=== PATIENT | female | born 1935 | race Caucasian/White ===

== ENCOUNTER → 2017-04-01 | Outpatient (CLI) | payer MEDICARE ==
[~2017-04-01] MED LIST: ASPIRIN 81M81 MG/TA2 PO; BETAPACE 80MG80 MG PO; CALCIUM CITRAT950 MG PO; DYRENIUM 50MG C50 MG PO; GLUCOSAMIN 500 PO; MULTI VITAMINS1 TAB PO; OMEGA 31000 MG PO; PRILOSEC 20MG20 MG PO; PROBIOTICA100 Milli1 PO; SYNTHROID0.05 MG/TA PO
== END ==
LOC: MC.RAD 07:08
DX: Z12.31 Encounter for screening mammogram for malignant neoplasm of breast (principal)

== ENCOUNTER 2017-08-15 07:30 | Emergency (ER) | payer MEDICARE ==
[2005-12-23 22:40] VITALS: BP 183/89
[~2017-08-15] VITALS: Ht 165.1 cm; Wt 68.2 kg
[2017-08-15 07:34] VITALS: TEMP 98.3
[2017-08-15] MEDS ORDERED: NORVASC 10MG10 MG PO (07:55)
[2017-08-15] MEDS ORDERED: PHOS LO (08:05)
[2017-08-15] MEDS ORDERED: CRANBERRY500 M3 PO (08:06)
[2017-08-15] MEDS ORDERED: CORTEF 10MG TAB10 MG RC (08:08)
[2017-08-15] MEDS ORDERED: ELOCON0.1% TP (08:09)
[2017-08-15] MEDS ORDERED: DITROPAN 5MG TAB5 MG PO (08:10)
[2017-08-15] MEDS ORDERED: MICARDIS80 MG PO (08:12)
[2017-08-15 08:13] LABS: BASO # 0.1 (0.0-0.2); BASO % 1.4 % (0.0-2.0); EOS # 0.5 (0.0-0.7); EOS % 10.5 % (0-4.0); GRAN # 2.1 (1.4-6.5); GRAN % 48.7 % (42.2-75.2); LYMPH # 1.3 (1.2-3.4); LYMPH % 29.4 % (20.0-51.0); MEAN CELL VOLUME 96 fl (80.0-100.0); MEAN CORPUSCULAR HGB CONC 34 g/dl (33.0-37.0); MEAN PLATELET VOLUME 9.7 fl (7.4-10.4); MONO # 0.4 (0.1-0.6); MONO % 9.8 % (1.7-9.3); PLATELET COUNT 273 K/mm3 (130-400); RED BLOOD COUNT 3.65 M/mm3 (4.10-5.30); REDCELL DISTRIBUTION WIDTH-CV 11.9 % (11.5-14.5)
[2017-08-15 08:15] LABS: HEMATOCRIT 35.1 % (37.0-47.0); HEMOGLOBIN 11.8 g/dl (12.5-16.0); MEAN CORPUSCULAR HEMOGLOBIN 32 pg (27.0-31.0)
[2017-08-15 08:25] LABS: BILIRUBIN,TOTAL 0.5 mg/dL (0.0-1.0); CALCIUM 9.2 mg/dL (8.4-10.2); CREATININE, serum 0.67 mg/dL (0.52-1.25); POTASSIUM 4.4 mmol/L (3.4-5.0); TOTAL PROTEIN 6.6 gm/dL (6.4-8.2)
[2017-08-15 09:07] LABS: COLLECTION METHOD CLEAN CATCH
[2017-08-15 09:20] LABS: PH 6 (5-8); SQUAMOUS EPITHELIAL 0-2 /hpf; URINE APPEARANCE Clear; URINE BACTERIA None Seen /hpf; URINE BILIRUBIN Negative (NEGATIVE); URINE BLOOD Negative (NEGATIVE); URINE COLOR Yellow; URINE GLUCOSE Negative (NEGATIVE); URINE KETONE Negative (NEGATIVE); URINE LEUKOCYTE ESTERASE 1+ (NEGATIVE); URINE NITRATE Negative (NEGATIVE); URINE PROTEIN(semi-quant) Negative (NEGATIVE); URINE RBC 0-2 /hpf; URINE UROBILINOGEN Negative (NEGATIVE)
[2017-08-15] MEDS ORDERED: MACROBID 1100 MG/CAP PO (09:27)
[2017-08-15 09:38] VITALS: BP 141/70; PULSE 63
== END 2017-08-15 09:39 | disposition home or self-care (01) ==
LOC: COL.ER 07:30
PROVIDERS: Family Medicine
DX: H93.3X3 Disorders of bilateral acoustic nerves (principal); N39.0 Urinary tract infection, site not specified; I10 Essential (primary) hypertension; Z79.82 Long term (current) use of aspirin; Z79.52 Long term (current) use of systemic steroids

== ENCOUNTER → 2018-05-02 | Outpatient (CLI) | payer MEDICARE ==
[~2018-05-02] MED LIST changes: +CORTEF 10MG TAB10 MG RC; +CRANBERRY500 M3 PO; +DITROPAN 5MG TAB5 MG PO; +ELOCON0.1% TP; +MACROBID 1100 MG/CAP PO; +MICARDIS80 MG PO; +NORVASC 10MG10 MG PO; +PHOS LO
== END ==
LOC: MC.RAD 07:08
DX: Z12.31 Encounter for screening mammogram for malignant neoplasm of breast (principal)

== ENCOUNTER → 2019-06-12 | Outpatient (CLI) | payer MEDICARE | LOC: MC.RAD 07:28 | DX: Z12.31 Encounter for screening mammogram for malignant neoplasm of breast (principal) ==

== ENCOUNTER → 2020-06-13 | Outpatient (CLI) | payer MEDICARE | LOC: MC.RAD 08:13 | DX: Z12.31 Encounter for screening mammogram for malignant neoplasm of breast (principal) ==

== ENCOUNTER → 2020-11-19 | Outpatient (CLI) | payer MEDICARE | LOC: COL.RAD 09:45 | DX: G45.9 Transient cerebral ischemic attack, unspecified (principal); I74.9 Embolism and thrombosis of unspecified artery; G31.9 Degenerative disease of nervous system, unspecified; M47.27 Other spondylosis with radiculopathy, lumbosacral region | CPT/HCPCS: A9585 ==

== ENCOUNTER → 2020-12-24 | Outpatient (CLI) | payer MEDICARE | LOC: MHCPAIN 09:08 | DX: M47.817 Spondylosis without myelopathy or radiculopathy, lumbosacral region (principal); M41.86 Other forms of scoliosis, lumbar region; M53.3 Sacrococcygeal disorders, not elsewhere classified; M54.5 Low back pain | CPT/HCPCS: G0463 ==

== ENCOUNTER → 2021-07-06 | Outpatient (CLI) | payer MEDICARE | LOC: MC.RAD 08:09 | DX: Z12.31 Encounter for screening mammogram for malignant neoplasm of breast (principal) ==

== ENCOUNTER 2021-09-29 17:10 | Observation (INO) | payer MEDICARE ==
[~2021-09-29] VITALS: Ht 165.1 cm; Wt 66.0 kg
[2021-09-29] MEDS ORDERED: PLAVIX 75MG TAB75 MG PO (18:19)
[2021-09-29 19:15] LABS: BASO # 0.1 K/mm3 (0.0-0.2); BASO % 1.2 % (0.0-2.0); EOS # 0.2 K/mm3 (0.0-0.7); EOS % 3.6 % (0.0-4.0); GRAN # 2.7 K/mm3 (1.4-6.5); GRAN % 53.7 % (42.2-75.2); HEMOGLOBIN 12.7 g/dl (12.5-16.0); LYMPH # 1.5 K/mm3 (1.2-3.4); MEAN CELL VOLUME 90 fl (80.0-100.0); MEAN CORPUSCULAR HEMOGLOBIN 33 pg (27-31); MEAN CORPUSCULAR HGB CONC 37 g/dl (33.0-37.0); MEAN PLATELET VOLUME 10.4 fl (7.4-10.4); MONO # 0.6 K/mm3 (0.1-0.6); MONO % 11.9 % (1.7-9.3); PLATELET COUNT 374 K/mm3 (130-400); REDCELL DISTRIBUTION WIDTH-CV 12.2 % (11.5-14.5)
[2021-09-29 19:16] LABS: HEMATOCRIT 34.3 % (37.0-47.0)
[2021-09-29 19:28] LABS: CREATININE, serum 0.78 mg/dL (0.57-1.11); POTASSIUM 4.5 mmol/L (3.5-4.5)
[2021-09-29 21:41] LABS: COLLECTION METHOD CLEAN CATCH
[2021-09-29 21:47] LABS: PH 7 (5-8); SQUAMOUS EPITHELIAL None Seen /hpf (0-10); URINE APPEARANCE Clear (CLEAR/HAZY); URINE BACTERIA None Seen /hpf (NONE SEEN); URINE BILIRUBIN Negative (NEGATIVE); URINE BLOOD Negative (NEGATIVE); URINE COLOR Straw (YELLOW); URINE GLUCOSE Negative (NEGATIVE); URINE KETONE Negative (NEGATIVE); URINE LEUKOCYTE ESTERASE Negative (NEGATIVE); URINE NITRATE Negative (NEGATIVE); URINE PROTEIN(semi-quant) Negative (NEGATIVE); URINE RBC None Seen /hpf (0-2); URINE UROBILINOGEN Negative (NEGATIVE)
[2021-09-29 22:46] VITALS: BP 141/63; PULSE 69; TEMP 97.2
--- NOTE | 2021-09-29 22:59 | NUR ---
Pt to the floor from ED via wheelchair at approximately 2145. Pt A&Ox4. Currently resting in bed, sandwich box at the bedside. Pt tolerating oral intake well. Pt complains of bilateral knee pain due to history of "bad knees" and having no "cartilage" per the pt. All other needs met at this time, call light within reach.
[2021-09-29 23:26] VITALS: BP 117/49; PULSE 69; TEMP 97.4
[2021-09-30 00:41] LABS: CALCIUM 8.8 mg/dL (8.4-10.2); CREATININE, serum 0.73 mg/dL (0.57-1.11); POTASSIUM 3.9 mmol/L (3.5-4.5)
[2021-09-30 01:45] VITALS: BP 117/49; PULSE 69; TEMP 97.4
[2021-09-30 03:27] VITALS: BP 120/105; BP 136/57; PULSE 64; TEMP 98.3
--- NOTE | 2021-09-30 03:27 | NUR ---
Pt has been resting quietly since she has come to the floor from the ED. Fluids are currently running, pt taking PO intake well. Pt has had to use the restroom multiple times since being admitted; she uses the toilet with 1x assist and the use of her cane. Pts gait is steady however she is visibly in pain and appears weak due to "bad knees". Pt has been pleasant and cooperative. All other needs met at this time, call light within reach.
[2021-09-30 06:45] LABS: BASO # 0.1 K/mm3 (0.0-0.2); BASO % 1.6 % (0.0-2.0); EOS # 0.2 K/mm3 (0.0-0.7); EOS % 4.4 % (0.0-4.0); GRAN # 2.6 K/mm3 (1.4-6.5); GRAN % 50.9 % (42.2-75.2); HEMATOCRIT 36.8 % (37.0-47.0); HEMOGLOBIN 12.7 g/dl (12.5-16.0); LYMPH # 1.5 K/mm3 (1.2-3.4); MEAN CELL VOLUME 92 fl (80.0-100.0); MEAN CORPUSCULAR HEMOGLOBIN 32 pg (27-31); MEAN CORPUSCULAR HGB CONC 35 g/dl (33.0-37.0); MEAN PLATELET VOLUME 10.1 fl (7.4-10.4); MONO # 0.6 K/mm3 (0.1-0.6); MONO % 12.5 % (1.7-9.3); PLATELET COUNT 361 K/mm3 (130-400); RED BLOOD COUNT 3.99 M/mm3 (4.10-5.30); REDCELL DISTRIBUTION WIDTH-CV 12.2 % (11.5-14.5)
[2021-09-30 06:51] LABS: CALCIUM 9.2 mg/dL (8.4-10.2); CREATININE, serum 0.74 mg/dL (0.57-1.11); POTASSIUM 3.8 mmol/L (3.5-4.5)
[2021-09-30 08:19] VITALS: BP 162/60; PULSE 62; TEMP 97.5
--- NOTE | 2021-09-30 09:25 | NUR ---
PATIENT ALERT AND ORIENTED X3. NO NEW CONCERNS. PATIENT WORKING WITH THERAPY TODAY. POTENTIAL DISCHARGE TOMORROW.
[2021-09-30 11:18] VITALS: BP 143/60; PULSE 56; TEMP 97.8
--- NOTE | 2021-09-30 11:38 | NUR ---
PATIENT NOW HAS NEW IV TO RIGHT FOREARM. NS RUNNING AT 60ML/HR.
--- NOTE | 2021-09-30 12:23 | NUR ---
Carpenter Ship met with patient to complete intake and discuss discharge plan. Patient states that she lives at home with her Ryan ([phone]) in [place]. She is independent with all of her ADL's and does utilize a rollator walker to assist with ambulation. She has no home oxygen needs. PCP is Dr. Diez and she utilizes [facility] for medication needs with no cost difficulty. Patient does have a DPOA-HC established listing her as her agent. A copy can be found in her EMR. Patient is plannning on returning home once medically ready. Discharge plan: Home w/ spouse.
[2021-09-30 15:58] VITALS: BP 137/64; PULSE 61; TEMP 98
[2021-09-30 19:19] VITALS: BP 146/64; PULSE 61; TEMP 98.1
[2021-10-01 00:03] VITALS: BP 180/65; PULSE 67; TEMP 97.9
[2021-10-01 03:47] VITALS: BP 144/78; PULSE 60; TEMP 98.2
--- NOTE | 2021-10-01 06:12 | NUR ---
Pt had an uneventful evening, rested quietly for a majority of the shift. Pt ambulating better than the evening before. Tolerating PO intake well, no complaints of N/V. No complaints of pain at this time, all other needs met. Call light within reach.
--- NOTE | 2021-10-01 07:30 | NUR ---
PT SITTING UP IN CHAIR, SPOUSE @ BEDSIDE. PT IS A&O X3 BUT IS FORGETFUL. PT HAS BEEN EDUCATED ON FALL PRECAUTIONS BUT CONTINUES TO GET UP ON HER OWN. PT ALSO STATES THAT SHE DOES NOT REMEMBER GETTING LOVENOX INJECTION YESTERDAY BUT IT HAD BEEN DOCUMENTED THAT SHE HAD. PT REQUESTS ICE WATER TO DRINK. PT EDUCATED ON FREE WATER RESTRICTION R/T SODIUM, IS GIVEN GATORADE TO DRINK.
[2021-10-01] MEDS ORDERED: ZOFRAN ODT4 MG PO (08:56)
[2021-10-01 09:22] LABS: CALCIUM 9.4 mg/dL (8.4-10.2); CREATININE, serum 0.66 mg/dL (0.57-1.11); POTASSIUM 3.6 mmol/L (3.5-4.5)
--- NOTE | 2021-10-01 10:32 | NUR ---
Initial visit; Patient thanked Practice Managers for checking on her and offering comfort and God's blessings...she then received a phone call of which Practice Managers told her to visit with whom ever is wanting to talk with her.
[2021-10-01 12:38] VITALS: BP 147/57; PULSE 87; TEMP 98
--- NOTE | 2021-10-01 13:23 | NUR ---
PT DISCHARGED TO HOME @ THIS TIME. PT TAKEN TO SPOUSE'S PRIVATE VEHICLE VIA WC. PERIPHERAL IV DISCONTINUED. PT ET SPOUSE GIVEN DC INSTRUCTIONS, FREE WATER RESTRICTION EMPHASIZED, BOTH VERBALIZE UNDERSTANDING, DENY QUESTIONS. PT DRESSES SELF IN STREET CLOTHES.
== END 2021-10-01 13:20 | disposition home or self-care (01) ==
LOC: COL.ER 17:10 → SURG 19:51
PROVIDERS: Emergency Medicine; Internal Medicine; Student in an Organized Health Care Education/Training Program; ADMIT Student in an Organized Health Care Education/Training Program
DX: E87.1 Hypo-osmolality and hyponatremia (principal); R53.1 Weakness; R60.0 Localized edema; I10 Essential (primary) hypertension; I48.91 Unspecified atrial fibrillation; E03.9 Hypothyroidism, unspecified; K21.9 Gastro-esophageal reflux disease without esophagitis; Z79.82 Long term (current) use of aspirin; Z79.899 Other long term (current) drug therapy; Z79.01 Long term (current) use of anticoagulants
CPT/HCPCS: G0378; J1650; J7030; J7040

== ENCOUNTER 2022-07-24 13:34 | Inpatient (IN) | payer MEDICARE ==
[~2022-07-24] VITALS: Ht 165.1 cm; Wt 59.6 kg
[~2022-07-24 13:34] MED LIST changes: +PLAVIX 75MG TAB75 MG PO; +ZOFRAN ODT4 MG PO
[2022-07-24 14:45] LABS: HEMOGLOBIN 11.4 g/dl (12.5-16.0); MEAN CELL VOLUME 88 fl (80.0-100.0); MEAN CORPUSCULAR HEMOGLOBIN 31 pg (27-31); MEAN CORPUSCULAR HGB CONC 36 g/dl (33.0-37.0); MEAN PLATELET VOLUME 9.7 fl (7.4-10.4); PLATELET COUNT 324 K/mm3 (130-400); RED BLOOD COUNT 3.66 M/mm3 (4.10-5.30); REDCELL DISTRIBUTION WIDTH-CV 12.7 % (11.5-14.5)
[2022-07-24 14:47] LABS: HEMATOCRIT 32.1 % (37.0-47.0)
[2022-07-24 15:05] LABS: ALBUMIN 2.6 gm/dL (3.4-4.8); BILIRUBIN,TOTAL 0.8 mg/dL (0.2-1.2); CALCIUM 8.8 mg/dL (8.4-10.2); CREATININE, serum 0.72 mg/dL (0.57-1.11); POTASSIUM 3.9 mmol/L (3.5-4.5); TOTAL PROTEIN 5.6 gm/dL (6.2-8.1)
[2022-07-24 15:07] LABS: BAND 4 % (0-10); LYMPHOCYTE 6 % (20.0-51.0); NEUTROPHILS 88 % (42.0-75.2); PLATELET ESTIMATE NORMAL (NORMAL)
[2022-07-24 15:08] LABS: BURR CELLS 2+
[2022-07-24 18:13] LABS: COLLECTION METHOD CLEAN CATCH
[2022-07-24 18:21] LABS: URINE APPEARANCE Hazy (CLEAR/HAZY); URINE BLOOD Negative (NEGATIVE); URINE COLOR Yellow (YELLOW); URINE GLUCOSE Negative (NEGATIVE); URINE KETONE Negative (NEGATIVE); URINE NITRATE Negative (NEGATIVE); URINE PROTEIN(semi-quant) Negative (NEGATIVE)
[2022-07-24 18:27] LABS: AMORPHOUS CRYSTAL Present (NOT PRESENT); MUCOUS Present (NOT PRESENT); SQUAMOUS EPITHELIAL 0-2 /hpf (0-10); URINE BACTERIA Occasional /hpf (NONE SEEN); URINE RBC 0-2 /hpf (0-2)
[2022-07-24 19:38] LABS: MAGNESIUM 1.8 mg/dL (1.6-2.6); PHOSPHOROUS 3.5 mg/dL (2.3-4.7)
[2022-07-24 19:59] LABS: TSH w REFLEX 1.373 uIU/mL (0.350-4.940)
[2022-07-24 20:25] LABS: OSMOLALITY-URINE random 333 Osm/kg (50-1200)
[2022-07-24 20:39] LABS: CALCIUM 8.4 mg/dL (8.4-10.2); CREATININE, serum 0.64 mg/dL (0.57-1.11); POTASSIUM 3.8 mmol/L (3.5-4.5)
--- NOTE | 2022-07-24 22:55 | NUR ---
PT ARRIVES FROM PACU VIA BED. IS AWAKE, ALERT. DENIES PAIN AT THIS TIME. JOSH DRAIN TO BULB SX, LAP SITES X2 WITH BANDAIDS D/I. WEARING OXYGEN PER OXYMASK AT THIS TIME. HAS LIJ, PATENT WITH IVF INFUSING.
[2022-07-24 23:00] VITALS: BP 117/54; PULSE 127; TEMP 97.8
[2022-07-24 23:15] VITALS: BP 120/41; PULSE 74
[2022-07-24 23:30] VITALS: BP 117/67; PULSE 72
[2022-07-24 23:42] VITALS: BP 108/44; PULSE 78
[2022-07-24] MEDS ORDERED: PROTONIX 40MG T40 MG PO (23:59)
[2022-07-25] VITALS (11 sets, daily range): BP systolic 112–130; BP diastolic 46–78; PULSE 69–118; TEMP 96.8–98.3
--- NOTE | 2022-07-25 | NUR ---
ADMISSION QUESTIONS COMPLETE. PT IS NPO, EXCEPT MEDS. ABD SOFT, DRSG'S D/I, NO FLATUS. URINE JOSIE IN ABBASI TUBING. HAS IVF AND CARDIZEM GTT INFUSING TO LIJ. HAS OXYGEN AT 3L/OXYMASK. DENIES PAIN AT THIS TIME.
--- NOTE | 2022-07-25 03:00 | NUR ---
Patient care, medication administration and nursing documentation occurred during a Daylight Savings Time Change.
--- NOTE | 2022-07-25 06:00 | NUR ---
PT REMAINS ON CARDIZEM GTT. LIJ PATENT. JOSH DRAINED FOR 20CC SEROSANGUINOUS FLUID. ABBASI WITH 550CC URINE OUTPUT THIS SHIFT. TAKES SYNTHROID WITH SIP OF WATER. DENIES NEED FOR PAIN MEDS AT THIS TIME.
[2022-07-25 06:41] LABS: MEAN CELL VOLUME 92 fl (80.0-100.0); MEAN CORPUSCULAR HEMOGLOBIN 31 pg (27-31); MEAN CORPUSCULAR HGB CONC 34 g/dl (33.0-37.0); MEAN PLATELET VOLUME 10.6 fl (7.4-10.4); PLATELET COUNT 302 K/mm3 (130-400)
[2022-07-25 06:43] LABS: HEMATOCRIT 29.4 % (37.0-47.0)
[2022-07-25 07:00] LABS: CALCIUM 7.6 mg/dL (8.4-10.2); CREATININE, serum 0.62 mg/dL (0.57-1.11); POTASSIUM 3.9 mmol/L (3.5-4.5)
[2022-07-25 08:30] LABS: BAND 3 % (0-10); LYMPHOCYTE 5 % (20.0-51.0); NEUTROPHILS 92 % (42.0-75.2); PLATELET ESTIMATE NORMAL (NORMAL)
[2022-07-25 08:31] LABS: BURR CELLS 1+
--- NOTE | 2022-07-25 12:05 | NUR ---
PATIENT ALERT AND ORIENTED X4. VSS. PATIENT HERE FOR INCARCERATED HERNIA REPAIR, PELVIC ABSCESS DRAIN. PATIENT DENIES PAIN AT THIS TIME. LEFT IJ TRIPLE LUMEN FLUSHES WELL WITH GOOD BLOOD RETURN. CARDIZEM GTT GOING AT 5ML/HOUR, NS RUNNING AT 100ML/HOUR. ABBASI TO DD WITH YELLOW OUTPUT. JOSH DRAIN WITH SEROUS OUTPUT. PATIENT DENIES ANY FURTHER NEEDS. PATIENT RESTING IN BED WITH CALL LIGHT NEAR.
--- NOTE | 2022-07-25 14:09 | NUR ---
BP AND PULSE TAKEN PRIOR TO ADMINISTERING METOPROLOL. 120/63 AND PULSE 117. WILL DC CARDIZEM GTT IN 45MINUTES.
--- NOTE | 2022-07-25 21:30 | NUR ---
PT IN BED, IS ALERT AND ORIENTED X4. HAS TRIPLE LUMEN LIJ, DRSG INTACT. ABD WITH JOSH DRAIN COMPRESSED WITH SEROSANGUINOUS DRAINAGE. CHANGED DRAIN DRSG AT THIS TIME. LAP SITES X2 WITH BANDAIDS, SMALL RLQ INCISION WITH GAUZE DRSG. PT HAS ABBASI TO BSD WITH YELLOW URINE. PT DENIES PAIN, REPORTS "SORENESS". DENIES PASSING GAS. IV ANTIBIOTIC CONNECTED, INFUSING OVER 4 HOURS.
--- NOTE | 2022-07-26 02:11 | NUR ---
PT COMPLAINS OF SCDS KEEPING HER AWAKE, REMOVED. ELEVATED LEGS ON PILLOWS AND GAVE DOSE OF MORPHINE FOR COMFORT.
[2022-07-26 03:58] VITALS: BP 131/64; PULSE 104; TEMP 98.2
--- NOTE | 2022-07-26 04:30 | NUR ---
PT REPORTS GOOD RELIEF OF LEG PAIN AFTER MORPHINE. IV ANTIBIOTIC CONNECTED, INFUSING WITHOUT PROBLEM.
[2022-07-26 06:55] LABS: MEAN CELL VOLUME 90 fl (80.0-100.0); MEAN CORPUSCULAR HGB CONC 34 g/dl (33.0-37.0); MEAN PLATELET VOLUME 10.6 fl (7.4-10.4); PLATELET COUNT 304 K/mm3 (130-400); RED BLOOD COUNT 2.94 M/mm3 (4.10-5.30); REDCELL DISTRIBUTION WIDTH-CV 13.2 % (11.5-14.5)
[2022-07-26 06:56] LABS: HEMATOCRIT 26.5 % (37.0-47.0); HEMOGLOBIN 9.1 g/dl (12.5-16.0); MEAN CORPUSCULAR HEMOGLOBIN 31 pg (27-31)
[2022-07-26 07:04] LABS: CALCIUM 7.9 mg/dL (8.4-10.2); CREATININE, serum 0.61 mg/dL (0.57-1.11); POTASSIUM 3.8 mmol/L (3.5-4.5)
[2022-07-26 07:30] VITALS: BP 153/91; PULSE 130; TEMP 97.6
--- NOTE | 2022-07-26 07:51 | NUR ---
Pt awake and states she "does not belong here." Pt attempted to get out of bed & this nurse oriented pt to location. This seemed to calm pt as she no longer attempted to leave her bed. Pt states she is normally not this "confused" and expressed concern for the morphine she receieved earlier. Morning medications administered per eMAR. Shift assessment completed. HR elevated between 120s-150s, Dr. Matt aware & new orders will be placed. LIJ remains in place with zosyn infusing at 25mL/hr. Telemetry on. LAP site x2 bandaids CDI. Dressing on RLQ CDI. JOSH drain intact, CDI. Mckinley in place. SCDs on WEI. Denies c/o pain at this time. Call light within reach.
[2022-07-26] MEDS ORDERED: ZOFRAN ODT4 MG PO (07:53)
[2022-07-26 08:21] LABS: PATHOLOGY DIFF REVIEW OK
[2022-07-26 08:50] LABS: BAND 8 % (0-10); LYMPHOCYTE 12 % (20.0-51.0); MYELOCYTE 3 % (0-0); NEUTROPHILS 75 % (42.0-75.2)
[2022-07-26 08:51] LABS: BURR CELLS 2+; PLATELET ESTIMATE NORMAL (NORMAL)
--- NOTE | 2022-07-26 10:30 | NUR ---
Metoprolol 50 mg OK to give (despite receiving morning dose) per entomology teacher Dr. Matt. Cardizem gtt infusing at 5mL/hr.
[2022-07-26 12:43] VITALS: BP 142/58; PULSE 74; TEMP 97.8
--- NOTE | 2022-07-26 13:06 | NUR ---
Ranch Manager met with PAtient while admitted to [facility] Surgical Unit at bedside to conduct Care Managment Assessment and discuss discharge planning. PAtient verrified that she lives in [place], [place] with her son, Abdirizak and her [id number]. PAtient is established with PCP Dr. Diez and is covered by [employer]. Patient is established with mail order Rx through [facility] and picks up immediate Rx needs from [facility]. Patient denies the use of O2 and home health prior to admission. PAtient endorses the use of a cane prior to admission. Patient reports to be independent with ADls prior to admission. Patient intends on discharging home and is open to home health services if needed per physician reccomendation but would prefer not to utilize home health seervices. SW spoke with PAtient's Son, Abdirizak in person who requested to be present for all SW and physician engagments with Patient. Discharge Plan: Home with possible HH
--- NOTE | 2022-07-26 14:55 | NUR ---
Mckinley catheter discontinued per orders. No c/o pain or discomfort during removal. 10cc obtained with catheter tip intact. Pericare provided.
[2022-07-26 16:58] VITALS: BP 145/70; PULSE 60; TEMP 98.6
--- NOTE | 2022-07-26 18:18 | NUR ---
This nurse noticed pts rhythm on telemonitor and called to Max in ICU to verify pts rhythm. Max states pt has been in NSR since 101. Attempted to reach Dr. Farmer x2. Unable to reach radio assembler.
--- NOTE | 2022-07-26 18:50 | NUR ---
Received call from Tesfaye in ICU, pt back in afib.
[2022-07-26 19:18] VITALS: BP 129/67; PULSE 101; TEMP 97.5
--- NOTE | 2022-07-26 20:42 | NUR ---
Patient A/O at this time, with bouts of confusion, with left IJ infusing well, cardizem drip running at 5ml/hr, called Sade, the PA and informed her that EKG was done and it's still afib, received an order to still continue to cardizem drip at same rate, with abdominal dressing CDI, with JOSH drain draining scant amount of serousanguinuous fluid, denies pain at this time, needs attended, call light and personal items within reach, will continue to monitor.
--- NOTE | 2022-07-26 22:26 | NUR ---
Bladder scanned the patient at this time and it was 103ml.
--- NOTE | 2022-07-26 22:44 | NUR ---
Patient up to the bathroom and voided.
[2022-07-26 23:18] VITALS: BP 133/81; PULSE 94; TEMP 98
[2022-07-27 03:53] VITALS: BP 121/66; PULSE 90; TEMP 98.2
--- NOTE | 2022-07-27 05:22 | NUR ---
Royce, from ICU called this nurse at 0443 and informed that patient converted back to normal sinus rhythm, informed sade, the PA and got an order for EKG. EKG result was sinus rhythm. Informed Sade and received an order to put the cardizem in standby mode. Few minutes after patient was back to atrial flutter and Sade said continue the cardizem drip.
--- NOTE | 2022-07-27 06:13 | NUR ---
Received a call from [facility] at 0547 and patient converted back to sinus rhythm, informed Sade, the SWETHA and said continue the cardizem drip.
--- NOTE | 2022-07-27 06:15 | NUR ---
Received a call from [facility] ICU and that patient is back to atrial flutter, will continue to monitor.
[2022-07-27 08:00] VITALS: BP 134/75; PULSE 50; TEMP 97.6
--- NOTE | 2022-07-27 09:12 | NUR ---
Pt. sitting up in the chair. Pt. is A&OX3, assessment complete. TLC to RT. IJ with cardizem gtt infusing per orders. Abd. incisions well approximated. Pt. assisted to the bed. Dr. Harden in to pull KETTY drain at this time. Gauze and tape applied to lt. ketty drain site. Pt. denies pain. Call light within reach. Pt. denies further needs.
--- NOTE | 2022-07-27 09:55 | NUR ---
Programmer Engineering And Scientific met with Patient and AGATHA Verduzco to complete and whittness DPOA for healthcare decision making. Completed DPOA was placed in chart. Copies were provided to Patient. AGATHA briefed Patient on the reccomendation from her treatment team that she discharge home with home health. AGATHA briefed what home health services provide. Patient declined home health at this time, reporting that she will follow-up with her PCP after discharge. Discharge Plan: Home
[2022-07-27 12:00] VITALS: BP 135/57; PULSE 64; TEMP 97.4
[2022-07-27 15:54] VITALS: BP 155/84; PULSE 71; TEMP 98.4
[2022-07-27 19:33] VITALS: BP 144/61; PULSE 66; TEMP 98.1
[2022-07-27 23:42] VITALS: BP 141/78; PULSE 87; TEMP 97.5
--- NOTE | 2022-07-27 23:59 | NUR ---
SHIFT REPORT FROM MAXX DUENAS. PATIENT IN CHAIR ON ROOM ENTRY. ALERT AND ORIENTED. HS MEDS PER EMAR. DENIES PAIN CONTROL NEEDS. X2 ABD LAPS CDI WITH BANDAIDS. RLQ TRANSVERSE BRANDON WITH EDGES WELL APPROXIMATED. DRAIN SITE WITH GAUZE AND TAPE WITH MINIMAL DRAINAGE NOTED ON DRESSING. NOTIFIED BY TELE THAT PATIENT WAS IN AFLUTTER AGAIN. CALL PLACED TO STEVIE POSDAA AND ORDER FOR 10 MG BOLUS OF CARIDAZEM GIVEN. PATIENT RATE DECREASED TO 80s-100s FOR 30 MINUTES AND THEN PATIENT CONVERTED TO SINUS RHYTHM WITH PACs. SIMILARLY TO LAST NIGHT PATIENT HAS BEEN BACK AND FORTH BETWEEN AFLUTTER AND SINUS. STEVIE POSADA AWARE. DENIES ADDITIONAL NEEDS. CALL LIGHT IN REACH.
[2022-07-28 03:44] VITALS: BP 156/88; PULSE 91; TEMP 97
--- NOTE | 2022-07-28 04:47 | NUR ---
0312- NOTIFIED STEVIE POSADA OF AFIB 130s PER TELE. ORDER FOR ADDITIONAL CARDIAZEM BOLUS, GIVEN. VSS.
[2022-07-28 07:40] VITALS: BP 140/57; PULSE 111; TEMP 97.9
--- NOTE | 2022-07-28 08:25 | NUR ---
Pt. sitting up in chair. Pt. is A&OX3, assessment complete. TLC to lt. IJ patent. Pt. denies pain or other needs, call light within reach.
--- NOTE | 2022-07-28 11:03 | NUR ---
Amiodarone bolus started at this time. Vitals stable
[2022-07-28 11:04] VITALS: BP 122/57
[2022-07-28 11:08] VITALS: BP 128/53
[2022-07-28 14:33] LABS: CLOSTRIDIUM DIFF A/B NEG
[2022-07-28 15:12] VITALS: BP 166/59; PULSE 63; TEMP 97.5
--- NOTE | 2022-07-28 15:42 | NUR ---
Emergency Veterinary Technician met with Patient to discuss discharge planning. Patient reported that she is now interested in Home Health services through [facility]. SW sent referral documents to [facility] with a follow-up call. [facility] accepts Patient for Home health services not to exceed 12 sessions in 60 days. SW briefed Patient on her acceptance. Discharge Plan: Home with Home Health. Accepted by [facility]
[2022-07-28 19:50] VITALS: BP 178/70; PULSE 67; TEMP 98.2
[2022-07-29] VITALS (7 sets, daily range): BP systolic 132–180; BP diastolic 42–79; PULSE 69–83; TEMP 97.6–98.6
--- NOTE | 2022-07-29 03:03 | NUR ---
SHIFT REPORT FROM MAXX DUENAS. PATIENT IN BED ON ROOM ENTRY. ALERT AND ORIENTED. HS MEDS PER EMAR. AMIO GTT INFUSING AT 17.2ML/HR. DENIES PAIN. HAVING FREQUENT LOOSE STOOLS. BP WAS ELEVATED EARLIER IN THE NIGHT, JESENIA KOO NOTIFIED AND PRN HYDRALAZINE ORDERED AND GIVEN. X2 ABD LAPS CDI WITH BANDAIDS. LOW TRANSVERSE BRANDON WITH EDGES WELL APPROXIMATED. JOSH SITE CDI WITH GAUZE. DENIES ADDITIONAL NEEDS. CALL LIGHT IN REACH.
[2022-07-29 10:11] LABS: HEMOGLOBIN 11.7 g/dl (12.5-16.0); MEAN CELL VOLUME 88 fl (80.0-100.0); MEAN CORPUSCULAR HEMOGLOBIN 31 pg (27-31); MEAN CORPUSCULAR HGB CONC 35 g/dl (33.0-37.0); MEAN PLATELET VOLUME 9.2 fl (7.4-10.4); PLATELET COUNT 455 K/mm3 (130-400); RED BLOOD COUNT 3.83 M/mm3 (4.10-5.30); REDCELL DISTRIBUTION WIDTH-CV 12.7 % (11.5-14.5)
[2022-07-29 10:23] LABS: HEMATOCRIT 33.6 % (37.0-47.0)
[2022-07-29 10:28] LABS: CALCIUM 8.6 mg/dL (8.4-10.2); CREATININE, serum 0.59 mg/dL (0.57-1.11); POTASSIUM 3.9 mmol/L (3.5-4.5)
[2022-07-29 10:38] LABS: BAND 2 % (0-10); EOSINOPHIL 2 % (0-4); LYMPHOCYTE 12 % (20.0-51.0); NEUTROPHILS 81 % (42.0-75.2); PLATELET ESTIMATE INCREASED (NORMAL)
--- NOTE | 2022-07-29 20:50 | NUR ---
pt resting in bed. meds given and assessment complete. pt denies pain. incisions are cdi. IV hydralazine given for elevated bp. tele in place and pt in NSR. LIJ patent. pt denies any other needs at this time. call light in reach.
[2022-07-30 03:42] VITALS: BP 170/61; PULSE 77; TEMP 97.6
[2022-07-30 07:47] LABS: CALCIUM 7.9 mg/dL (8.4-10.2); CREATININE, serum 0.53 mg/dL (0.57-1.11); POTASSIUM 3.3 mmol/L (3.5-4.5)
[2022-07-30 07:50] VITALS: BP 147/50; PULSE 82; TEMP 98.7
[2022-07-30 07:51] LABS: MEAN CELL VOLUME 89 fl (80.0-100.0); MEAN CORPUSCULAR HEMOGLOBIN 31 pg (27-31); MEAN CORPUSCULAR HGB CONC 35 g/dl (33.0-37.0); MEAN PLATELET VOLUME 9.5 fl (7.4-10.4); PLATELET COUNT 396 K/mm3 (130-400); RED BLOOD COUNT 3.18 M/mm3 (4.10-5.30); REDCELL DISTRIBUTION WIDTH-CV 12.8 % (11.5-14.5)
[2022-07-30 08:01] LABS: HEMATOCRIT 28.3 % (37.0-47.0)
[2022-07-30 08:33] LABS: EOSINOPHIL 1 % (0-4); LYMPHOCYTE 4 % (20.0-51.0); METAMYELOCYTE 1 % (0-0); MYELOCYTE 2 % (0-0); NEUTROPHILS 92 % (42.0-75.2); PLATELET ESTIMATE NORMAL (NORMAL)
[2022-07-30] MEDS ORDERED: ELIQUIS 2.5 PO (09:46)
[2022-07-30] MEDS ORDERED: PACERONE400 MG PO (09:53)
[2022-07-30] MEDS ORDERED: AMOXICILLIN 8751 TAB PO (09:59)
[2022-07-30 12:00] VITALS: BP 154/75; PULSE 72; TEMP 98.1
--- NOTE | 2022-07-30 12:18 | NUR ---
PATIENT ALERT AND ORIENTED X4. VSS. PATIENT HERE FOR ABDOMINAL HERNIA REPAIR/PELVIC ABSCESS. PATIENT DENIES ANY PAIN. LIJ CDI, FLUSHES WELL WITH GOOD BLOOD RETURN IN TWO LUMEN. ONE LUMEN WITHOUT BLOOD RETURN BUT WILL FLUSH. LAP SITES X2 CDI. LOWER RLQ INCISION, CDI. OLD JOSH SITE CDI. PATIENT TOLERATING DIET. PATIENT DENIES ANY LOOSE STOOLS. CALL LIGHT IN REACH.
--- NOTE | 2022-07-30 12:19 | NUR ---
JOSE ROCA'D. PRESSURE HELD FOR 10 MINUTES. PATIENT LYING FLAT FOR 30 MINUTES.
--- NOTE | 2022-07-30 14:05 | NUR ---
DISCHARGE INSTRUCTIONS PROVIDED TO PATIENT AND SON. PATIENT EDUCATION GIVEN. JOSE PEREZ. FOLLOW UP APPOINTMENTS DISCUSSED INCLUDING THE NEED TO MAKE AN APPT WITH PCP AND FOLLOW UP WITH HOME HEALTH ORDERS. MEDICATIONS REVIEWED, INCLUDING ONES TO STOP AND START TAKING. PATIENT AND SON DENY AND QUESTIONS OR CONCERNS. PATIENT AND BELONGINGS ESCORTED OUT VIA WHEELCHAIR.
--- NOTE | 2022-07-30 14:58 | NUR ---
Aqua Ammonia Operator faxed discharge orders to Ramos at [facility].
[2022-08-10] MEDS ORDERED: MULTI VITAMINS1 TAB PO (16:48)
[2022-08-10] MEDS ORDERED: ZOFRAN 4MG T4 MG/TAB PO (16:49)
[2022-08-10] MEDS ORDERED: NORCO 325 MG-51 TAB PO (16:51)
[2022-08-10] MEDS ORDERED: ACIDOPHILIS RC (16:53)
== END 2022-07-30 14:06 | disposition home or self-care (01) | DRG 853 ==
LOC: COL.ER 13:34 → SURG 22:10
PROVIDERS: Internal Medicine; Nurse Practitioner Family; Obstetrics & Gynecology; Physician Assistant; ADMIT Surgery
PROC: 0YQ50ZZ Repair Right Inguinal Region, Open Approach (ICD-10-PCS; principal; 2022-07-24 20:00)
PROC: 0W9J40Z Drainage of Pelvic Cavity with Drainage Device, Percutaneous Endoscopic Approach (ICD-10-PCS; 2022-07-24 20:00)
PROC: 02HV33Z Insertion of Infusion Device into Superior Vena Cava, Percutaneous Approach (ICD-10-PCS; 2022-07-24 20:00)
DX: A41.9 Sepsis, unspecified organism (principal); N73.3 Female acute pelvic peritonitis; E87.1 Hypo-osmolality and hyponatremia; K40.30 Unilateral inguinal hernia, with obstruction, without gangrene, not specified as recurrent; E87.20 Acidosis, unspecified; N13.30 Unspecified hydronephrosis; I31.39 Other pericardial effusion (noninflammatory); I10 Essential (primary) hypertension; E03.9 Hypothyroidism, unspecified; K21.9 Gastro-esophageal reflux disease without esophagitis; K59.00 Constipation, unspecified; D64.9 Anemia, unspecified; E87.8 Other disorders of electrolyte and fluid balance, not elsewhere classified; Z66 Do not resuscitate; E86.9 Volume depletion, unspecified; B96.20 Unspecified Escherichia coli [E. coli] as the cause of diseases classified elsewhere; I48.0 Paroxysmal atrial fibrillation; I08.1 Rheumatic disorders of both mitral and tricuspid valves; B96.1 Klebsiella pneumoniae [K. pneumoniae] as the cause of diseases classified elsewhere; Z86.73 Personal history of transient ischemic attack (TIA), and cerebral infarction without residual deficits; Z90.49 Acquired absence of other specified parts of digestive tract; Z90.710 Acquired absence of both cervix and uterus; Z79.890 Hormone replacement therapy; Z79.02 Long term (current) use of antithrombotics/antiplatelets; Z23 Encounter for immunization
CPT/HCPCS: A9284; C1751; C9113; J0282; J0330; J0360; J0690; J1100; J1650; J2270; J2405; J2543; J2704; J3010; J7030; J7060; Q9967